=== PATIENT | female | born 1935 | race Caucasian/White ===

== ENCOUNTER → 2016-11-04 | Outpatient (CLI) | payer BC | END | disposition home or self-care (01) | LOC: C.MAMM 12:46 | PROVIDERS: ATTEND Family Medicine | DX: M81.0 Age-related osteoporosis without current pathological fracture (principal); M85.88 Other specified disorders of bone density and structure, other site ==

== ENCOUNTER → 2017-06-27 | Outpatient (CLI) | payer BC ==
--- NOTE | 2017-06-27 13:57 | DIAGNOSTIC IMAGING REPORT ---
CHEST 2 VIEWS ROUTINE HISTORY: COUGH COMPARISON: Chest 09/24/2013. FINDINGS: Stable punctate calcified granuloma within the right lower lobe. The lungs are hyperexpanded with mild apical predominant emphysematous changes. No pleural effusions. No pneumothorax. The heart is normal in size. No focal lung consolidations to suggest pneumonia. IMPRESSION: No significant change compared to the prior study. No acute process. Electronically signed by: Eric Garzon M.D. 06/27/2017 1:55 PM Dictated Date/Time: 06/27/2017 1:54 PM
== END | disposition home or self-care (01) ==
LOC: C.RAD 13:36
PROVIDERS: ATTEND Family Medicine
DX: R05 Cough (principal)